=== PATIENT | female | born 1985 | race Caucasian/White ===

== ENCOUNTER 2020-10-22 13:24 | Emergency (ER) | payer BC, SELFPAY ==
[~2020-10-22] VITALS: Ht 162.6 cm; Wt 81.6 kg
[2020-10-22 13:55] VITALS: BP 136/91
[2020-10-22 15:24] VITALS: BP 136/91
--- NOTE | 2020-10-22 15:25 | NUR ---
Patient discharged with v/s stable. Written and verbal after care instructions given and explained. Patient verbalized understanding. Ambulatory with steady gait. All questions addressed prior to discharge. Advised to follow up with PMD.
--- NOTE | 2020-10-22 15:35 | NUR ---
STREP AND COVID SWABS DONE. WALKDE TO LAB BY CATARINA MARIA
== END 2020-10-22 15:25 | disposition home or self-care (01) ==
LOC: MED 13:24
DX: J02.9 Acute pharyngitis, unspecified (principal); Z20.822 Contact with and (suspected) exposure to COVID-19
CPT/HCPCS: 87081; 99283; U0003